=== PATIENT | male | born 1945 | race Caucasian/White ===

== ENCOUNTER 2016-05-27 16:40 | Emergency (ER) | payer OTHER ==
[2016-05-27 16:43] VITALS: BP 148/80; PULSE 103; RESP 20; TEMP 98.9
[2016-05-27] MEDS ORDERED: PLAV75TA29 PO (17:02)
[2016-05-27] MEDS ORDERED: [UNRECOGNIZED DRUG - REMARK] PO (17:02)
[2016-05-27] MEDS ORDERED: [UNRECOGNIZED DRUG - REMARK] PO (17:02)
--- NOTE | 2016-05-27 17:02 | PD ---
HPI . Right hip pain Chief Complaint: Musculoskeletal Complaint Time Seen by Provider: 16:57 Travel History International Travel<30 days: No Contact w/Intl Traveler<30days: No Traveled to known affect area: No History of Present Illness HPI Patient presents with ongoing right hip pain. Patient states that he had had a previous hip replacement when he fell and suffered a fracture below the prosthesis. He states that he had to undergo urgency surgery to have that repaired. He states that he subsequently had a postop infection. He was on Cipro for a prolonged period of time. He states that he has continued to have pain in the hip and that it just does not seem to be getting better as it should. He states he called his doctor today and was told from the emergency department lab work done to make sure that it was not infected again. He denies fever. He has not noted any redness or swelling over the hip joint. PFSH Past Medical History Hx Anticoagulant Therapy: Yes (PLAVIX) Social History Tobacco Use: No Allergies-Medications (Allergen,Severity, Reaction): Coded Allergies: Penicillin (Verified Allergy, Severe, Tongue swelling, 05/27/16) Reported Meds & Prescriptions Reported Meds & Active Scripts Active Reported [2 BP pills] 1 Tab PO DAILY [Cholesterol pill] 1 Tab PO DAILY Plavix (Clopidogrel Bisulfate) 75 Mg Tab 75 Mg PO DAILY Review of Systems Except as stated in HPI: all other systems reviewed are Neg General / Constitutional: No: Fever, Chills Musculoskeletal: Positive: Arthralgias Skin: No Change in Pigmentation Physical Exam Narrative GENERAL: Awake and alert and in no acute distress. SKIN: Warm and dry. No redness or warmth over the right hip. CARDIOVASCULAR: Regular rate and rhythm. RESPIRATORY: No accessory muscle use. MUSCULOSKELETAL: No obvious deformities. No edema. Full range of motion of the right hip without any apparent discomfort. NEUROLOGICAL: Awake and alert. No obvious cranial nerve deficits. Motor grossly within normal limits. Normal speech. PSYCHIATRIC: Appropriate mood and affect; insight and judgment normal. Data Data Last Documented VS Vital Signs Date Time Temp Pulse Resp B/P Pulse Ox O2 Delivery O2 Flow Rate FiO2 05/27/16 19:35 90 18 129/76 97 Room Air 05/27/16 16:43 98.9 Orders Hip, Uni(Ap&Lat) Wo Ap Pelvis (05/27/16 16:57) Complete Blood Count With Diff (05/27/16 16:57) Westergren Sedimentation Rate (05/27/16 16:57) C-Reactive Protein (Crp) (05/27/16 16:57) Labs Laboratory Tests Test 05/27/16 05/27/16 17:10 17:25 White Blood Count 12.3 TH/MM3 Red Blood Count 4.97 MIL/MM3 Hemoglobin 13.9 GM/DL Hematocrit 42.4 % Mean Corpuscular Volume 85.4 FL Mean Corpuscular Hemoglobin 28.0 PG Mean Corpuscular Hemoglobin 32.8 % Concent Red Cell Distribution Width 15.3 % Platelet Count 304 TH/MM3 Mean Platelet Volume 7.5 FL Neutrophils (%) (Auto) 58.0 % Lymphocytes (%) (Auto) 25.5 % Monocytes (%) (Auto) 12.8 % Eosinophils (%) (Auto) 2.8 % Basophils (%) (Auto) 0.9 % Neutrophils # (Auto) 7.2 TH/MM3 Lymphocytes # (Auto) 3.1 TH/MM3 Monocytes # (Auto) 1.6 TH/MM3 Eosinophils # (Auto) 0.3 TH/MM3 Basophils # (Auto) 0.1 TH/MM3 CBC Comment DIFF FINAL Differential Comment Erythrocyte Sedimentation Rate 17 mm/hr C-Reactive Protein 3.90 MG/DL MDM Medical Decision Making Medical Screen Exam Complete: Yes Emergency Medical Condition: Yes Medical Record Reviewed: Yes (patient has not been seen here for this hip problem.) Differential Diagnosis Differential diagnosis of joint pain includes but is not limited to arthritis, gout, sprain/strain, fracture, dislocation Narrative Course Patient presents for evaluation of ongoing right hip pain. He states that his physician is concerned about possible infection. I have ordered an x-ray to check for hardware, CBC, sedimentation rate and C-reactive protein. Last Impressions Hip X-Ray 05/27/16 [id number] Signed Impressions: Service Date/Time: Friday, May 27, 2016 17:31 - CONCLUSION: Radiographic appearance of the right total hip arthroplasty is within normal limits. No fracture, subluxation or perceptible bone destruction. Giuseppe Palacios MD X-ray was independently viewed by me. Diagnosis Primary Impression: Right hip pain Patient Instructions: General Instructions, Hip Pain (ED) Additional Instructions: Call your doctor tomorrow as planned Disposition: 01 DISCHARGE HOME Condition: Stable Oeters,April Montgomery MD May 27, 2016 17:02
[2016-05-27 17:16] LABS: AUTOMATED NEUTROPHIL # 7.2 TH/MM3 (1.8-7.7); BASOPHIL # 0.1 TH/MM3 (0-0.2); BASOPHIL % 0.9 % (0.0-2.0); EOSINOPHIL # 0.3 TH/MM3 (0-0.4); EOSINOPHIL % 2.8 % (0.0-4.0); HEMATOCRIT 42.4 % (39.0-51.0); HEMO FLAGS DIFF FINAL; LYMPH % 25.5 % (9.0-44.0); LYMPHOCYTE # 3.1 TH/MM3 (1.0-4.8); MEAN CELL VOLUME 85.4 FL (80.0-100.0); MEAN CORPUSCULAR HGB CONC 32.8 % (32.0-36.0); MONO % 12.8 % (0.0-8.0); PLATELET COUNT 304 TH/MM3 (150-450); RED BLOOD COUNT 4.97 MIL/MM3 (4.50-5.90); RED CELL DISTRIBUTION WIDTH 15.3 % (11.6-17.2); WHITE BLOOD COUNT 12.3 TH/MM3 (4.0-11.0)
--- NOTE | 2016-05-27 17:56 | RADHPO ---
EXAM DATE/TIME: 05/27/2016 17:31 [facility] COMPARISON: No previous studies available for comparison. INDICATIONS : Right hip pain for several months. Patient stated right hip infection 1 month ago. MEDICAL HISTORY : None. SURGICAL HISTORY : Total hip replacement, right 2015. Right femur fx. 2015. ENCOUNTER: Initial ACUITY: 2 months PAIN SCORE: 5/10 LOCATION: Right hip. FINDINGS: There is a right total hip arthroplasty that appears intact and normally aligned. No bone destruction seen. Radiographic appearance of the soft tissues within normal limits. CONCLUSION: Radiographic appearance of the right total hip arthroplasty is within normal limits. No fracture, sub luxation or perceptible bone destruction. Giuseppe Palacios MD on May 27, 2016 at 17:54 Board Certified Radiologist. This report was verified electronically.
[2016-05-27 19:35] VITALS: BP 129/76; PULSE 90; RESP 18; O2SAT 97
== END 2016-05-27 19:35 | disposition home or self-care (01) ==
LOC: PHEFT 16:40
DX: M25.551 Pain in right hip (principal); Z79.01 Long term (current) use of anticoagulants; Z96.641 Presence of right artificial hip joint
CPT/HCPCS: 73502; 85025; 85652; 86140; 99283